=== PATIENT | female | born 1960 | race Hispanic/Latino ===

== ENCOUNTER 2019-11-26 14:49 | Outpatient (CLI) | payer BC, OTHER ==
[2019-11-27 11:08] LABS: SARS-CoV-2 MS2 Positive; SARS-CoV-2 N Gene Negative; SARS-CoV-2 S Gene Negative; SARS-CoV-2 by NAA Not Detected (NotDetected); SARS-CoV-2 orf1ab Negative
== END 2019-11-26 14:50 | disposition home or self-care (01) ==
LOC: LABBT 14:49
PROVIDERS: ATTEND Physician Assistant
DX: R49.0 Dysphonia (principal); Z20.828 Contact with and (suspected) exposure to other viral communicable diseases
CPT/HCPCS: 87635; U0003

== ENCOUNTER 2019-11-29 12:49 | Outpatient (CLI) | payer BC ==
--- NOTE | 2019-12-02 08:06 | RAD ---
Exam: Modified barium swallow, in the presence speech pathologist Exposure: 24 seconds. 0.41 milligray/M2. HISTORY: Dysphagia, oropharyngeal phase. Dysphagia, parapharyngeal phase. Feeding difficulties. Chron ic cough while eating. FINDINGS: In the presence of a speech pathologist, the patient was administered puree, nectar thick, thin liquid, regular texture foods. No definite penetration or aspiration. IMPRESSION: Please refer to speech pathologist report for feeding recommendation. Transcribed Date/Time: 12/02/2019 8:37 AM
== END 2019-11-29 12:50 | disposition home or self-care (01) ==
PROVIDERS: ATTEND Physician Assistant
DX: R13.12 Dysphagia, oropharyngeal phase (principal); R13.14 Dysphagia, pharyngoesophageal phase; R49.0 Dysphonia; R63.3 Feeding difficulties
CPT/HCPCS: 74230